=== PATIENT | female | born 1975 | race Caucasian/White ===

== ENCOUNTER 2025-04-19 19:08 | Emergency (ER) | payer OTHER, SELFPAY ==
[2025-04-19 19:14] VITALS: BP 132/88
[2025-04-19 19:36] LABS: Hematocrit 41.7 % (37.0-47.0); Hemoglobin 14.2 g/dL (12.0-16.0); Mean Corp Hgb Conc. 34.1 g/dL (33.0-37.0); Mean Corpuscular Volume 92.5 fL (81.0-99.0); Nucleated Red Blood Cells % 0 %; Platelet Count 295 10^3/uL (130-400); Red Cell Dist. Width 11.9 % (11.5-14.5)
[2025-04-19 20:01] LABS: ALT (SGPT) 20 U/L (0-35); AST (SGOT) 15 U/L (14-36); Albumin 4.7 g/dl (3.5-5.0); Alkaline Phosphatase 68 U/L (38-126); Blood Urea Nitrogen 16 mg/dl (7-17); Calcium 9.1 mg/dl (8.4-10.2); Carbon Dioxide 23 mmol/L (22-30); Chloride 109 mmol/L (98-107); Glucose 96 mg/dl (70-99); Potassium 3.8 mmol/L (3.5-5.1); Sodium 140 mmol/L (135-145); Total Protein 6.9 g/dl (6.3-8.2); eGFR > 60.00
[2025-04-19 21:38] VITALS: BP 139/75
[2025-04-20] VITALS: BP 135/83
[2025-04-20 01:00] VITALS: BP 109/62
--- NOTE | 2025-04-20 01:35 | ED.GENMED ---
History of Present Illness
General
Chief Complaint: Chest Problem
Source: patient
Exam Limitations: none
Time Seen by Provider: 04/20/25 01:26
Nursing documentation reviewed up to this point in time: agreed with
Past History
Past History
ED Past Medical History: Other (Migraines, C-diff, Colitis, RBBB, Interstitical Cystitis)
ED Past Surgical History: Gynecological (Hysterectomy) and Urological
Social History
Tobacco: Non-smoker
Alcohol: None
Personal:
Living: with family
Employment: Employed
Course
Orders/Labs/Results
Orders:
Orders
04/19/25 19:21
Chest [CR Chest - 2 Views ] Urgent
Comment:
Reason For Exam: cough
04/19/25 19:25
Complete Blood Count/With Diff Urgent
Comprehensive Metabolic Panel Urgent
04/20/25 02:09
Electrocardiogram (*1) Urgent
Reason for Study: Chest Pain
EKG- Treatment ONCE
Neck Soft Tissue [CR Soft Tissue Neck ] Urgent
Comment:
Reason For Exam: throat tight
04/20/25 02:14
Nystatin Suspension [Mycostatin Oral Suspension] 5 ml PO NOW STA
Abnormal Lab Results
04/19/25
19:25
MCH 31.5 H pg
(27.0-31.0)
MPV 10.9 H fL
(7.4-10.4)
Absolute Monos (auto) 0.9 H 10^3/uL
(0.1-0.6)
Monocytes % 11.4 H %
(1.7-9.3)
Chloride 109 H mmol/L
(98-107)
04/19/25 19:25
04/19/25 19:25
Vital Signs
Initial and Last Documented VS:
Initial Vital Signs
Temp Pulse Resp BP Pulse Ox
37.1 C 75 20 132/88 97
04/19/25 19:14 04/19/25 19:14 04/19/25 19:14 04/19/25 19:14 04/19/25 19:14
Last Documented Vital Signs
Temp Pulse Resp BP Pulse Ox
36.6 C 67 16 135/83 98
04/19/25 21:38 04/19/25 21:38 04/19/25 21:38 04/20/25 00:00 04/20/25 01:35
MDM/Problems Addressed
MDM/Problems Addressed:
Note:
CHIEF COMPLAINT(S)
- Chest tightness
- White patches on the tongue
- Soreness in the throat
HISTORY OF PRESENT ILLNESS
The patient is a 50-year-old female who reports a recent history of COVID-19 infection. She was treated with azithromycin (Z-Chuy) and prednisone by her family physician. Subsequent to completing the antibiotic regimen two days ago, she experienced
some improvement before waking this morning with a new onset of white patches on her tongue and symptoms consistent with a yeast infection. The patient also complains of a wrinkly sensation in her tongue, together with soreness in her throat. She
describes that her chest tightness has persisted since her initial illness and feels slightly worsened by her current symptoms. Notably, she denies any recent shortness of breath or inability to swallow. The patient mentions using an inhaler during
her recent illness but has not been rinsing her mouth afterward. This morning, she noted a sudden increase in discomfort in her throat which she attributes to potential thrush, as revealed by the white patches on her tongue and hoarseness in her
voice.
PHYSICAL EXAM
Nursing notes reviewed and vital signs reviewed.
- Oral examination revealed white patches on the tongue that cannot be scraped off and redness in the throat.
- Lungs do not exhibit wheezing upon auscultation.
- Chest X-ray clear, with no evidence of pneumonia or fluid accumulation in the pleural space.
- Electrocardiogram is normal.
PLAN
- Order an X-ray of the neck to evaluate the airway space.
- Prescribe oral nystatin for suspected oral thrush.
- Instruct the patient to follow up with her family physician and consider seeing an Ear, Nose, and Throat specialist if symptoms persist.
DIFFERENTIAL DIAGNOSIS
The Differential Diagnosis includes, in no particular order and is not limited to:
1. Oral thrush
2. Viral pharyngitis
3. COVID-19 related complications
4. Rebound symptoms post-steroid taper
5. Allergic reaction to medications
6. Inhaler-induced candidiasis
7. Viral upper respiratory tract infection
8. Acute bronchitis
9. Gastroesophageal reflux disease
10. Anxiety-related symptoms
*Pulse Oximetry
SaO2: 98
Oxygen Mode of Delivery: Room air
ED Attending Note
-
Portions of this chart may have been created with voice recognition software.� Occasional wrong word or��sound alike� substitutions may have occurred due to the inherent limitations of voice recognition software.
Discharge Plan
Departure
Patient Disposition: Home (Routine Discharge)
Date of Disposition: 04/20/25
Time of Disposition: 03:28
Patient with high blood pressure during this ER visit?: No
Condition: Fair
Covid-19: Not Applicable
Discharge Problem:
Thrush
Instructions: Thrush in adults
Prescriptions:
New
nystatin 100,000 unit/mL suspension
400,000 unit PO QID PRN (Reason: throat pain) Qty: 250 0RF
No Action
estradiol [Vivelle-Dot] 1 PATCH.BWK patch semiweekly
1 patch.bwk TD SUWE
Patient Comments:
0.1MG PATCH
topiramate 100 MG tablet
100 mg PO BID
Botox
1 dose INJ .[id number]
Patient Comments:
MIGRANES
Elmiron
1 tab PO TID
Patient Comments:
100MG TAB
Phenergan:
1 tab PO PRN (Reason: MIGRANES)
Patient Comments:
doesnt know dose or frequency
oxycodone-acetaminophen 5 MG/325 MG tablet
1 tab PO Q4HPRN PRN (Reason: pain) Qty: 20 0RF
dicyclomine 20 MG tablet
20 mg PO TID PRN (Reason: NEEDED)
eletriptan [Relpax] 40 MG tablet
40 mg PO DAILY PRN (Reason: NEEDED)
dekofcapma-pozqnuczhu-aac-cod [Fioricet with Codeine] 1 EACH capsule
1 cap PO Q4H PRN (Reason: MIGRANE)
lorazepam 0.5 MG tablet
0.5 - 1 mg PO HS
Patient Comments:
PT STATES 1MG
fidaxomicin [Dificid] 200 MG tablet
200 mg PO BID Qty: 16 0RF
hyoscyamine sulfate [Levsin/SL] 0.125 MG tablet, sublingual
0.125 mg sublingual Q6HPRN Qty: 30 0RF
hydrocodone-acetaminophen 1 TABLET tablet
1 tab PO Q4HPRN PRN (Reason: Pain) Qty: 10 0RF
Referrals:
Opal Elam DO [Family Provider, Family Practice] - Follow up in 2-3 days
Drew Ventura MD [Active, ENT] - Follow up in 1 week
Activity Restrictions/Additional Instructions:
Your x-ray of your neck appears normal without any significant swelling of the tissues. It makes sense that after your round of steroids and inhaler use that you may have developed thrush in your mouth. It can also be in your posterior throat.
Use the nystatin swish and swallow (TRY TO KEEP IT IN YOUR MOUTH LONGAS YOU CAN BEFORE SWALLOWING) next week but they had to cancel that because her older family 2 yeah like we talked twice a day for 7 days. You were given a dose of Diflucan
already today. It is also possible you could have a different viral infection. This does not look like a bacterial infection. Your x-ray was normal and showed no pneumonia and your blood work was reassuring. Please follow-up with your doctor
this week. You may need to see an ear nose and throat doctor for persistent symptoms. Return to the ER for severe worsening of throat symptom, trouble breathing, significant chest pain or shortness of breath or any concern
Interventions
Interventions:
*Risk Screen - Suicide Last Done: 04/19/25 19:14
*General Assessment Last Done: 04/19/25 19:14
*Neglect/Abuse Screening Last Done: 04/19/25 19:14
*ED- Fall Risk Assessment Last Done: 04/19/25 19:14
*ED COVID-19 Vaccine History Last Done: 04/19/25 19:14
ED- Cardiac Assessment Last Done: 04/20/25 00:05
ED- Pulmonary Assessment Last Done: 04/20/25 00:05
Discharge Date and Time
Print Language: TURKISH
[2025-04-20 02:00] VITALS: BP 109/69
[2025-04-20] MEDS: MYCOSTATIN ORAL SUSPENSION 5 ML PO (02:24)
[2025-04-20 03:00] VITALS: BP 113/78
== END 2025-04-20 03:46 | disposition home or self-care (01) ==
LOC: EMR 19:08
PROVIDERS: EMERGENCY PHYSICIAN Student in an Organized Health Care Education/Training Program; FAMILY PHYSICIAN Family Medicine
DX: B37.9 Candidiasis, unspecified (principal); I45.10 Unspecified right bundle-branch block; Z86.16 Personal history of COVID-19; Z90.710 Acquired absence of both cervix and uterus; Z98.82 Breast implant status
CPT/HCPCS: 99283; 70360; 71046; 80053; 85025; 93005

== ENCOUNTER → 2025-08-11 10:14 | Outpatient (REF) | payer OTHER, SELFPAY ==
[2025-08-11 14:42] LABS: Urine Character Clear (Clear)
[2025-08-11 15:45] LABS: Urine Red Blood Cell 26-30 /HPF (0-2); Urine Squamous Cell >30 /LPF (Few); Urine Urothelial Cell 16-20 /LPF (FEW)
== END ==
LOC: REG 10:14
PROVIDERS: ATTENDING PHYSICIAN Urology; FAMILY PHYSICIAN Family Medicine
DX: N39.0 Urinary tract infection, site not specified (principal)
CPT/HCPCS: 81003; 81015; 87086

== ENCOUNTER → 2025-08-16 10:45 | Outpatient (REF) | payer OTHER, SELFPAY | LOC: HWRAD 10:45 | PROVIDERS: ATTENDING PHYSICIAN Urology; FAMILY PHYSICIAN Family Medicine | DX: N20.0 Calculus of kidney (principal) | CPT/HCPCS: 74018 ==

== ENCOUNTER 2025-08-18 06:21 | Day surgery (SDC) | payer OTHER, SELFPAY | END 2025-08-18 09:04 | disposition home or self-care (01) | LOC: GI 06:21 | PROVIDERS: ATTENDING PHYSICIAN Internal Medicine Gastroenterology | DX: Z12.11 Encounter for screening for malignant neoplasm of colon (principal); K64.4 Residual hemorrhoidal skin tags; K57.30 Diverticulosis of large intestine without perforation or abscess without bleeding | CPT/HCPCS: 45380; 88305 ==

== ENCOUNTER → 2025-08-31 08:11 | Outpatient (REF) | payer OTHER, SELFPAY | LOC: HWRAD 08:11 | PROVIDERS: ATTENDING PHYSICIAN Urology; FAMILY PHYSICIAN Family Medicine | DX: R31.9 Hematuria, unspecified (principal); R10.9 Unspecified abdominal pain; N20.0 Calculus of kidney | CPT/HCPCS: 74176 ==